=== PATIENT | female | born 1980 | race Caucasian/White ===

== ENCOUNTER 2017-01-18 15:15 | Inpatient (IN) | payer OTHER ==
[2017-01-18 17:07] VITALS: BMI 40.6
--- NOTE | 2017-01-18 18:21 | HP ---
CIWA Score - CIWA Score Nausea/Vomitin Muscle Tremors: 4-Moderate,w/Arms Extend Anxiety: 4-Mod. Anxious/Guarded Agitation: 4-Moderately Restless Paroxysmal Sweats: 1-Minimal Palms Moist Orientation: 0-Oriented Tacttile Disturbances: 0-None Auditory Disturbances: 0-None Visual Disturbances: 0-None Headache: 0-None Present CIWA-Ar Total Score: 15 Admission ROS BHS - HPI Chief Complaint: withdrawal sx Allergies/Adverse Reactions: Allergies Allergy/AdvReac Type Severity Reaction Status Date / Time No Known Allergies Allergy Verified 01/18/17 17:41 History of Present Illness: 36 years old female with long history of alcohol nicotine dependence, has asthma gerd hepatitis c and depression is admitted to detox Exam Limitations: No Limitations - Ebola screening Have you traveled outside of the country in the last 21 days: No Have you had contact with anyone from an Ebola affected area: No Have you been sick,other than usual withdrawal symptoms: No Do you have a fever: No - Review of Systems Constitutional: Changes in sleep, Weight Stable EENT: reports: Blurred Vision (left eye history of trauma), Hearing Loss (right ear) Respiratory: reports: SOB with Exertion Cardiac: reports: No Symptoms Reported GI: reports: Nausea, Poor Fluid Intake, Indigestion, Abdominal cramping : reports: No Symptoms Reported Musculoskeletal: reports: No Symptoms Reported Integumentary: reports: No Symptoms Reported Neuro: reports: Seizure (last episode 05/2016 alcohol withdrawal related), Tremors Endocrine: reports: No Symptoms Reported Hematology: reports: No Symptoms Reported Psychiatric: reports: Judgement Intact, Orientated x3, Anxious, Depressed Other Systems: Reviewed and Negative Patient History - Patient Medical History Hx Anemia: No Hx Asthma: Yes (Pt is on MDI) Hx Chronic Obstructive Pulmonary Disease (COPD): No Hx Cancer: No Hx Cardiac Disorders: No Hx Congestive Heart Failure: No Hx Hypertension: Yes (not on meds.) Hx Hypercholesterolemia: No Hx Pacemaker: No HX Cerebrovascular Accident: No Hx Seizures: Yes (etoh related seizures last 7 months ago.) Hx Dementia: No Hx Diabetes: No Hx Gastrointestinal Disorders: No Hx Genitourinary Disorders: No Hx Sexually Transmitted Disorders: No Hx Renal Disease (ESRD): No Hx Thyroid Disease: No Hx Human Immunodeficiency Virus (HIV): No Hx Hepatitis C: Yes Hx Depression: Yes Hx Suicide Attempt: No Hx Bipolar Disorder: No Hx Schizophrenia: No - Patient Surgical History Past Surgical History: Yes Hx Neurologic Surgery: No Hx Cataract Extraction: Yes (left eye trauma 2003) Hx Cardiac Surgery: No Hx Lung Surgery: No Hx Breast Surgery: No Hx Breast Biopsy: No Hx Abdominal Surgery: No Hx Appendectomy: No Hx Cholecystectomy: No Hx Genitourinary Surgery: No Hx Section: No Hx Orthopedic Surgery: No Hx Hysterectomy: No Other Surgical History: Tubal ligation. L eye artificial lens from trauma. Anesthesia Reaction: No - PPD History Previous Implant?: Yes Documented Results: Negative w/o proof Implanted On Prior R Admission?: No PPD to be Administered?: Yes - Reproductive History Patient is a Female of Child Bearing Age (11 -55 yrs old): Yes Last Menstrual Period: 01/02/17 Patient : No - Smoking Cessation Smoking history: Current every day smoker Have you smoked in the past 12 months: Yes Aproximately how many cigarettes per day: 15 Hx Chewing Tobacco Use: No Initiated information on smoking cessation: Yes 'Breaking Loose' booklet given: 01/18/17 - Substance & Tx. History Hx Alcohol Use: Yes Hx Substance Use: Yes Substance Use Type: Alcohol, Heroin Hx Substance Use Treatment: No - Substances Abused Alcohol Route: Oral Frequency: Daily Amount used: 1/2 gallon volka Age of first use: 28 Date of Last Use: 01/18/17 Family Disease History - Family Disease History Family Disease History: Heart Disease: Mother, Other: Father (/overdose) Admission Physical Exam BHS - Vital Signs Vital Signs: Vital Signs - 24 hr 01/18/17 17:02 Temperature 98.1 F Pulse Rate 85 Respiratory 18 Rate Blood Pressure 144/90 - Physical General Appearance: Yes: Appropriately Dressed, Moderate Distress, Obese, Tremorous, Irritable, Sweating, Anxious HEENTM: Yes: Hearing grossly Normal, Normal ENT Inspection, Normocephalic, Normal Voice Respiratory: Yes: Chest Non-Tender, No Respiratory Distress, No Accessory Muscle Use, Wheezing Neck: Yes: Supple, Trachea in good position Breast: Yes: Breasts Symetrical Cardiology: Yes: Regular Rhythm, Regular Rate, S1, S2 Abdominal: Yes: Normal Bowel Sounds, Non Tender, Soft Genitourinary: Yes: Within Normal Limits Back: Yes: Normal Inspection Musculoskeletal: Yes: full range of Motion, Gait Steady Neurological: Yes: Fully Oriented, Alert, Motor Strength 5/5, Normal Response, Depressed Affect Integumentary: Yes: Warm Lymphatic: Yes: Within Normal Limits - Diagnostic (1) Alcohol dependence with uncomplicated withdrawal Current Visit: Yes Status: Acute (2) Methadone maintenance therapy patient Current Visit: Yes Status: Chronic Comment: 145 mg daily verification pending (3) Asthma Current Visit: Yes Status: Chronic Qualifiers: Asthma severity: mild persistent Asthma complication type: with status asthmaticus Qualified Code(s): J45.32 - Mild persistent asthma with status asthmaticus (4) Nicotine dependence Current Visit: Yes Status: Acute Qualifiers: Nicotine product type: cigarettes Substance use status: in withdrawal Qualified Code(s): F17.213 - Nicotine dependence, cigarettes, with withdrawal (5) GERD (gastroesophageal reflux disease) Current Visit: Yes Status: Chronic Qualifiers: Esophagitis presence: without esophagitis Qualified Code(s): K21.9 - Gastro-esophageal reflux disease without esophagitis (6) Hepatitis C carrier Current Visit: Yes Status: Chronic Cleared for Admission S - Detox or Rehab [facility] Level of Care: Medically Managed Detox Regimen/Protocol: Librium [facility] Breath Alcohol Content Breath Alcohol Content: 0.040 Urine Pregancy Test - Result Urine Test Results: Negative- NO Line Present Urine Drug Screen - Results Drug Screen Negative: No Urine Drug Screen Results: BZO-Benzodiazepines, MTD-Methadone
[2017-01-18] MEDS ORDERED: NICOTINE POLACRILEX 4 MG GUM BUC PRN (18:22)
[2017-01-18] MEDS ORDERED: MAG HYDROX/AL HYDROX/SIMETH 30 ML UNIT-DOSE CUP PO PRN (18:22)
[2017-01-18] MEDS ORDERED: MAGNESIUM HYDROX 2400MG/30ML ORAL SUSPENSION 30 ML CUP PO PRN (18:22)
[2017-01-18] MEDS ORDERED: guaiFENesin/D-METHORPHAN HB 10 ML UNIT-DOSE CUPS PO PRN (18:22)
[2017-01-18] MEDS ORDERED: P-EPHED 60MG/TRIPROLIDI 2.5MG TABLET PO PRN (18:22)
[2017-01-18] MEDS ORDERED: MENTHOL/PHENOL 1 EACH UD MM PRN (18:22)
[2017-01-18] MEDS ORDERED: LOPERAMIDE HCL 2 MG CAPSULE PO PRN (18:22)
[2017-01-18] MEDS ORDERED: ACETAMINOPHEN 325 MG TABLET (FP) PO PRN (18:22)
[2017-01-18] MEDS ORDERED: MAGNESIUM CITRATE 300 ML BOTTLE PO PRN (18:22)
[2017-01-18] MEDS ORDERED: chlordiazePOXIDE HCL 25 MG CAPSULE PO ONE (18:22)
[2017-01-18] MEDS ORDERED: ALBUTEROL SO4 6.7 GM HFA INHALER IH PRN (18:24)
[2017-01-18] MEDS ORDERED: ALBUTEROL SO4 2.5/IPRATROPIUM 0.5 INH SOL 3 ML VIAL.NEB. NEB PRN (18:24)
[2017-01-18] MEDS: chlordiazePOXIDE HCL 25 MG CAPSULE PO SCH (22:19)
[2017-01-18] MEDS: diphenhydrAMINE HCL 50 MG CAPSULE PO PRN (22:20)
[2017-01-18] MEDS: THIAMINE HCL 100 MG TABLET (FP) PO SCH (22:20)
[2017-01-18] MEDS: RANITIDINE HCL 150 MG TABLET (FP) PO SCH (22:42)
[2017-01-19 00:33] LABS: URINE APPEARANCE SLCLOUDY; URINE BILIRUBIN NEGATIVE (NEGATIVE); URINE BLOOD NEGATIVE (NEGATIVE); URINE COLOR YELLOW; URINE GLUCOSE (UA) NEGATIVE (NEGATIVE); URINE KETONE NEGATIVE (NEGATIVE); URINE NITRITE NEGATIVE (NEGATIVE); URINE PROTEIN NEGATIVE (NEGATIVE)
[2017-01-19 00:38] LABS: URINE LEUK ESTERASE 1+ (NEGATIVE)
[2017-01-19 01:00] LABS: URINE RBC 1 /hpf (0-3); URINE WBC 1 /hpf (3-5)
[2017-01-19] MEDS: chlordiazePOXIDE HCL 25 MG CAPSULE PO SCH ×4 (05:27→22:10)
[2017-01-19] MEDS ORDERED: cloNIDine HCL 0.1 MG TABLET PO ONE (06:20)
[2017-01-19] MEDS: chlordiazePOXIDE HCL 25 MG CAPSULE PO PRN ×2 (09:08→12:51)
--- NOTE | 2017-01-19 09:22 | EKG ---
Test Reason : Blood Pressure : / mmHG Vent. Rate : 075 BPM Atrial Rate : 075 BPM P-R Int : 158 ms QRS Dur : 084 ms QT Int : 428 ms P-R-T Axes : 057 036 018 degrees QTc Int : 477 ms NORMAL SINUS RHYTHM POOR R WAVE PROGRESSION NO PREVIOUS ECGS AVAILABLE Confirmed by RAGINI SAM MD ([id number]) on 01/19/2017 9:22:19 AM Referred By: Confirmed By:RAGINI SAM MD
[2017-01-19] MEDS ORDERED: METHADONE HCL 40 MG DISPERSABLE TABLET PO SCH (10:00)
[2017-01-19] MEDS ORDERED: METHADONE 120 MG, METHADONE 20 MG, METHADONE 5 MG PO ONE (10:15)
[2017-01-19] MEDS: RANITIDINE HCL 150 MG TABLET (FP) PO SCH ×2 (10:21→22:10)
[2017-01-19] MEDS: NICOTINE 21 MG/24 HOURS TOPICAL PATCH TD SCH (10:21)
[2017-01-19] MEDS: PRENATAL VITAMINS W/ FOLIC ACID TABLET (FP) PO SCH (10:21)
[2017-01-19 10:24] LABS: MCHC 32.2 g/dl (32.0-36.0); MEAN CELL VOLUME 102.5 fl (80-96); MEAN PLT VOLUME 10.1 fl (7.5-11.1); PLATELET COUNT 120 K/MM3 (134-434); RDW 13.4 % (11.6-15.6); WHITE BLOOD COUNT 7.1 K/mm3 (4.0-10.0)
[2017-01-19] MEDS ORDERED: METHADONE HCL 10 MG TABLET ONE (10:25)
[2017-01-19] MEDS ORDERED: METHADONE HCL 40 MG DISPERSABLE TABLET ONE (10:25)
[2017-01-19] MEDS ORDERED: METHADONE HCL 5 MG TABLET ONE (10:26)
[2017-01-19 10:44] LABS: ALBUMIN 3.1 g/dl (3.4-5.0); ANION GAP 5 (8-16); BILIRUBIN,TOTAL 1.2 mg/dL (0.2-1.0); CALCIUM 8.3 mg/dL (8.5-10.1); CO2 38 mmol/L (21-32); CREATININE 0.8 mg/dL (0.55-1.02); GLUCOSE,RANDOM 119 mg/dL (74-106); SGOT/AST 110 U/L (15-37); TOT PROT 6.5 g/dl (6.4-8.2)
[2017-01-19 10:45] LABS: ALK PHOS 152 U/L (45-117); SGPT/ALT 53 U/L (12-78)
--- NOTE | 2017-01-19 11:29 | PN ---
S CIWA - CIWA Score Nausea/Vomitin Muscle Tremors: 3 Anxiety: 3 Agitation: 2 Paroxysmal Sweats: 1-Minimal Palms Moist Orientation: 0-Oriented Tacttile Disturbances: 1-Very Mild Itch/Numbness Auditory Disturbances: 1-Very Mild Visual Disturbances: 1-Very Mild Sensitivity Headache: 2-Mild CIWA-Ar Total Score: 17 BHS Progress Note (SOAP) Subjective: ALERT,IRRITABLE,ANXIOUS,INTERRUPTED SLEEP,TREMOR Objective: 01/19/17 11:26 Vital Signs Temperature 97.9 F 01/19/17 09:58 Pulse Rate 83 01/19/17 09:58 Respiratory Rate 18 01/19/17 09:58 Blood Pressure 143/82 01/19/17 09:58 O2 Sat by Pulse Oximetry (%) EKG NSR,NORMAL ECG Laboratory Last Values WBC 7.1 K/mm3 (4.0-10.0) 01/19/17 07:00 RBC 4.00 M/mm3 (3.60-5.2) 01/19/17 07:00 Hgb 13.2 GM/dL (10.7-15.3) 01/19/17 07:00 Hct 41.0 % (32.4-45.2) 01/19/17 07:00 MCV 102.5 fl (80-96) H 01/19/17 07:00 MCH 33.0 pg (25.7-33.7) 01/19/17 07:00 MCHC 32.2 g/dl (32.0-36.0) 01/19/17 07:00 RDW 13.4 % (11.6-15.6) 01/19/17 07:00 Plt Count 120 K/MM3 (134-434) L 01/19/17 07:00 MPV 10.1 fl (7.5-11.1) 01/19/17 07:00 Sodium 142 mmol/L (136-145) 01/19/17 07:00 Potassium 3.9 mmol/L (3.5-5.1) 01/19/17 07:00 Chloride 99 mmol/L (98-107) 01/19/17 07:00 Carbon Dioxide 38 mmol/L (21-32) H 01/19/17 07:00 Anion Gap 5 (8-16) L 01/19/17 07:00 BUN 11 mg/dL (7-18) 01/19/17 07:00 Creatinine 0.8 mg/dL (0.55-1.02) 01/19/17 07:00 Creat Clearance w eGFR > 60 (>60) 01/19/17 07:00 Random Glucose 119 mg/dL (74-106) H 01/19/17 07:00 Calcium 8.3 mg/dL (8.5-10.1) L 01/19/17 07:00 Total Bilirubin 1.2 mg/dL (0.2-1.0) H 01/19/17 07:00 AST 110 U/L (15-37) H 01/19/17 07:00 ALT 53 U/L (12-78) 01/19/17 07:00 Alkaline Phosphatase 152 U/L (45-117) H 01/19/17 07:00 Total Protein 6.5 g/dl (6.4-8.2) 01/19/17 07:00 Albumin 3.1 g/dl (3.4-5.0) L 01/19/17 07:00 Urine Color Yellow 01/19/17 00:01 Urine Appearance Slcloudy 01/19/17 00:01 Urine pH 6.0 (5.0-8.0) 01/19/17 00:01 Ur Specific [place] 1.010 (1.005-1.025) 01/19/17 00:01 Urine Protein Negative (NEGATIVE) 01/19/17 00:01 Urine Glucose (UA) Negative (NEGATIVE) 01/19/17 00:01 Urine Ketones Negative (NEGATIVE) 01/19/17 00:01 Urine Blood Negative (NEGATIVE) 01/19/17 00:01 Urine Nitrite Negative (NEGATIVE) 01/19/17 00:01 Urine Bilirubin Negative (NEGATIVE) 01/19/17 00:01 Urine Urobilinogen 2.0 mg/dL (0.2-1.0) H 01/19/17 00:01 Ur Leukocyte Esterase 1+ (NEGATIVE) H 01/19/17 00:01 Urine RBC 1 /hpf (0-3) 01/19/17 00:01 Urine WBC 1 /hpf (3-5) 01/19/17 00:01 Ur Epithelial Cells Rare /hpf (FEW) 01/19/17 00:01 Assessment: 01/19/17 11:28 WITHDRAWAL SYMPTOM Plan: CONTINUE DETOX,D/C TYLENOL.CMP,INR IN AM
--- NOTE | 2017-01-19 13:52 | CONSULT ---
[facility] Psychiatric Consult - Data Date of interview: 01/19/17 Admission source: [facility] Identifying data: First admisssion to [facility] for this 36 y/o female from [place] ancestry,seeking detox treatment on for alcohol and heroin dependence.Patient is ,a mother of three,homeless (fci), unemployed and supported on welfare. Substance Abuse History: Discuseed in this session.Patient confirmed the following [facility] report. Smoking Cessation. Smoking history: Current every day smoker. Have you smoked in the past 12 months: Yes. Aproximately how many cigarettes per day: 15. Hx Chewing Tobacco Use: No. Initiated information on smoking cessation: Yes. 'Breaking Loose' booklet given: 01/18/17. - Substance & Tx. History. Hx Alcohol Use: Yes. Hx Substance Use: Yes. Substance Use Type : Alcohol, Heroin. Hx Substance Use Treatment: No. - Substances Abused. Alcohol. Route: Oral. Frequency: Daily. Amount used: 1/2 gallon volka. Age of first use: 28. Date of Last Use: 01/18/17 Medical History: Hypercholesterolemia,hypertension,GERD,hepatitis C,withdrawal- related seizures in the past and a history of tubal ligation.Noted additional history of eye surgery in 2003 due to traumatic injury (artificial lens in left eye). Psychiatric History: No reported history of psychiatric hospitalizations.Patient admits to being diagnosed with Bipolar Disorder and followed at the [facility] mental health clinic in [facility].Prescribed trazodone + geodon.Ms Moe declares total non-adherence to geodon (for more than one year) and partial/sporadic compliance with trazodone.Patient denies history of suicide attempts. Physical/Sexual Abuse/Trauma History: Patient denies. Additional Comment: Urine Drug Screen Results: BZO-Benzodiazepines, MTD- Methadone.Noted. Mental Status Exam - Mental Status Exam Alert and Oriented to: Time, Place, Person Cognitive Function: Good Patient Appearance: Well Groomed (overweight) Mood: Hopeful, Euthymic Affect: Appropriate, Normal Range Patient Behavior: Appropriate, Cooperative Speech Pattern: Clear Voice Loudness: Normal Thought Process: Intact, Goal Oriented Thought Disorder: Not Present Hallucinations: Denies Suicidal Ideation: Denies Homicidal Ideation: Denies Insight/Judgement: Poor Sleep: Poorly, Difficulty falling asleep Appetite: Good Muscle strength/Tone: Normal Gait/Station: Normal Psychiatric Findings - Problem List ([place] 1, 2,3) (1) Alcohol dependence with uncomplicated withdrawal Current Visit: Yes Status: Acute (2) Opioid dependence on agonist therapy Current Visit: Yes Status: Acute (3) Nicotine dependence Current Visit: Yes Status: Acute Qualifiers: Nicotine product type: cigarettes Substance use status: in withdrawal Qualified Code(s): F17.213 - Nicotine dependence, cigarettes, with withdrawal (4) Substance induced mood disorder Current Visit: Yes Status: Acute (5) Asthma Current Visit: Yes Status: Chronic Qualifiers: Asthma severity: mild persistent Asthma complication type: with status asthmaticus Qualified Code(s): J45.32 - Mild persistent asthma with status asthmaticus (6) GERD (gastroesophageal reflux disease) Current Visit: Yes Status: Chronic Qualifiers: Esophagitis presence: without esophagitis Qualified Code(s): K21.9 - Gastro-esophageal reflux disease without esophagitis (7) Hepatitis C carrier Current Visit: Yes Status: Chronic (8) Insomnia Current Visit: Yes Status: Acute - Initial Treatment Plan Initial Treatment Plan: Psychoeducation.Detoxification.Trazodone 50 mg po hs ( patient's request).Side effects/benefits discussed with patient.She consents ( verbally) to adhere to careplan.Observation.Declines geodon or alternates.
[2017-01-19] MEDS: diphenhydrAMINE HCL 50 MG CAPSULE PO PRN (22:11)
[2017-01-19] MEDS: traZODone HCL 50 MG TABLET (FP) PO SCH (22:11)
[2017-01-19] MEDS: THIAMINE HCL 100 MG TABLET (FP) PO SCH (22:11)
[2017-01-20] MEDS ORDERED: METHADONE HCL 10 MG TABLET ONE (05:03)
[2017-01-20] MEDS ORDERED: METHADONE HCL 40 MG DISPERSABLE TABLET ONE (05:03)
[2017-01-20] MEDS ORDERED: METHADONE HCL 5 MG TABLET ONE (05:04)
[2017-01-20] MEDS: chlordiazePOXIDE HCL 25 MG CAPSULE PO SCH ×3 (05:23→17:32)
[2017-01-20] MEDS: METHADONE 120 MG, METHADONE 20 MG, METHADONE 5 MG PO SCH (05:23)
[2017-01-20] MEDS: NICOTINE 21 MG/24 HOURS TOPICAL PATCH TD SCH (10:20)
[2017-01-20] MEDS: PRENATAL VITAMINS W/ FOLIC ACID TABLET (FP) PO SCH (10:20)
[2017-01-20] MEDS: RANITIDINE HCL 150 MG TABLET (FP) PO SCH ×2 (10:20→22:06)
--- NOTE | 2017-01-20 10:37 | PN ---
S CIWA - CIWA Score Nausea/Vomitin-Int. Nausea w/Dry Heave Muscle Tremors: 4-Moderate,w/Arms Extend Anxiety: 4-Mod. Anxious/Guarded Agitation: 4-Moderately Restless Paroxysmal Sweats: 3 Orientation: 0-Oriented Tacttile Disturbances: 0-None Auditory Disturbances: 0-None Visual Disturbances: 0-None Headache: 0-None Present CIWA-Ar Total Score: 19 S Progress Note (SOAP) Subjective: nausea, sweats, interrupted sleep, anxiety, tremors, rash pruruitc on back Objective: 01/20/17 10:36 Vital Signs - 24 hr 01/19/17 01/19/17 01/19/17 13:50 17:57 21:14 Temperature 97.7 F 97.7 F 97.9 F Pulse Rate 120 H 66 79 Respiratory 18 16 18 Rate Blood Pressure 154/85 140/90 150/104 01/19/17 01/20/17 01/20/17 23:45 00:30 03:30 Temperature Pulse Rate 66 Respiratory 18 18 Rate Blood Pressure 126/88 01/20/17 01/20/17 06:00 09:58 Temperature 97.5 F L 97.0 F L Pulse Rate 67 73 Respiratory 20 18 Rate Blood Pressure 146/87 124/89 Laboratory Tests 01/19/17 01/19/17 01/19/17 00:01 07:00 07:00 WBC 7.1 RBC 4.00 Hgb 13.2 Hct 41.0 MCV 102.5 H MCH 33.0 MCHC 32.2 RDW 13.4 Plt Count 120 L MPV 10.1 Sodium 142 Potassium 3.9 Chloride 99 Carbon Dioxide 38 H Anion Gap 5 L BUN 11 Creatinine 0.8 Creat Clearance w eGFR > 60 Random Glucose 119 H Calcium 8.3 L Total Bilirubin 1.2 H AST 110 H ALT 53 Alkaline Phosphatase 152 H Total Protein 6.5 Albumin 3.1 L Urine Color Yellow Urine Appearance Slcloudy Urine pH 6.0 Ur Specific [place] 1.010 Urine Protein Negative Urine Glucose (UA) Negative Urine Ketones Negative Urine Blood Negative Urine Nitrite Negative Urine Bilirubin Negative Urine Urobilinogen 2.0 H Ur Leukocyte Esterase 1+ H Urine RBC 1 Urine WBC 1 Ur Epithelial Cells Rare RPR Titer 01/19/17 07:00 WBC RBC Hgb Hct MCV MCH MCHC RDW Plt Count MPV Sodium Potassium Chloride Carbon Dioxide Anion Gap BUN Creatinine Creat Clearance w eGFR Random Glucose Calcium Total Bilirubin AST ALT Alkaline Phosphatase Total Protein Albumin Urine Color Urine Appearance Urine pH Ur Specific [place] Urine Protein Urine Glucose (UA) Urine Ketones Urine Blood Urine Nitrite Urine Bilirubin Urine Urobilinogen Ur Leukocyte Esterase Urine RBC Urine WBC Ur Epithelial Cells RPR Titer Nonreactive Assessment: 01/20/17 10:36 withdrawal sx, pruritic rash Plan: cont detox, fluids, ambulate, lachydrin for dry skin
[2017-01-20 10:47] LABS: ALBUMIN 3.1 g/dl (3.4-5.0); ANION GAP 7 (8-16); BILIRUBIN,TOTAL 0.9 mg/dL (0.2-1.0); CALCIUM 8.4 mg/dL (8.5-10.1); CO2 37 mmol/L (21-32); GLUCOSE,RANDOM 129 mg/dL (74-106); SGOT/AST 105 U/L (15-37); SGPT/ALT 57 U/L (12-78)
[2017-01-20 10:49] LABS: ALK PHOS 160 U/L (45-117); CREATININE 0.8 mg/dL (0.55-1.02); TOT PROT 6.5 g/dl (6.4-8.2)
[2017-01-20] MEDS ORDERED: AMMONIUM LACTATE 12% LOTION 225 GM BOTTLE TP PRN (11:00)
[2017-01-20 11:02] LABS: INR 1.1 (0.82-1.09); PROTHROMBIN TIME (PATIENT) 12.1 SEC (9.98-11.88)
[2017-01-20] MEDS: chlordiazePOXIDE HCL 25 MG CAPSULE PO PRN (19:31)
[2017-01-20] MEDS: traZODone HCL 50 MG TABLET (FP) PO SCH (22:06)
[2017-01-20] MEDS: THIAMINE HCL 100 MG TABLET (FP) PO SCH (22:06)
[2017-01-20] MEDS: chlordiazePOXIDE 5 MG CAPSULE PO SCH (22:06)
[2017-01-20] MEDS: diphenhydrAMINE HCL 50 MG CAPSULE PO PRN (22:06)
[2017-01-21] MEDS ORDERED: METHADONE HCL 10 MG TABLET ONE (02:13)
[2017-01-21] MEDS ORDERED: METHADONE HCL 40 MG DISPERSABLE TABLET ONE (02:13)
[2017-01-21] MEDS ORDERED: METHADONE HCL 5 MG TABLET ONE (02:13)
[2017-01-21] MEDS: chlordiazePOXIDE 5 MG CAPSULE PO SCH ×3 (05:44→18:08)
[2017-01-21] MEDS: METHADONE 120 MG, METHADONE 20 MG, METHADONE 5 MG PO SCH (05:45)
--- NOTE | 2017-01-21 10:13 | PN ---
BHS Progress Note (SOAP) Subjective: nausea, sweats, interrupted sleep, anxiety, tremors Objective: 01/21/17 10:12 Vital Signs - 8 hr 01/21/17 01/21/17 03:30 06:16 Temperature 97.2 F L Pulse Rate 75 Respiratory 18 18 Rate Blood Pressure 148/67 Laboratory Tests 01/19/17 01/19/17 01/19/17 00:01 07:00 07:00 WBC 7.1 RBC 4.00 Hgb 13.2 Hct 41.0 MCV 102.5 H MCH 33.0 MCHC 32.2 RDW 13.4 Plt Count 120 L MPV 10.1 INR Sodium 142 Potassium 3.9 Chloride 99 Carbon Dioxide 38 H Anion Gap 5 L BUN 11 Creatinine 0.8 Creat Clearance w eGFR > 60 Random Glucose 119 H Calcium 8.3 L Total Bilirubin 1.2 H AST 110 H ALT 53 Alkaline Phosphatase 152 H Total Protein 6.5 Albumin 3.1 L Urine Color Yellow Urine Appearance Slcloudy Urine pH 6.0 Ur Specific [place] 1.010 Urine Protein Negative Urine Glucose (UA) Negative Urine Ketones Negative Urine Blood Negative Urine Nitrite Negative Urine Bilirubin Negative Urine Urobilinogen 2.0 H Ur Leukocyte Esterase 1+ H Urine RBC 1 Urine WBC 1 Ur Epithelial Cells Rare RPR Titer 01/19/17 01/20/17 01/20/17 07:00 07:00 07:00 WBC RBC Hgb Hct MCV MCH MCHC RDW Plt Count MPV INR 1.10 Sodium 144 Potassium 4.0 Chloride 100 Carbon Dioxide 37 H Anion Gap 7 L BUN 12 Creatinine 0.8 Creat Clearance w eGFR > 60 Random Glucose 129 H Calcium 8.4 L Total Bilirubin 0.9 D AST 105 H ALT 57 Alkaline Phosphatase 160 H Total Protein 6.5 Albumin 3.1 L Urine Color Urine Appearance Urine pH Ur Specific [place] Urine Protein Urine Glucose (UA) Urine Ketones Urine Blood Urine Nitrite Urine Bilirubin Urine Urobilinogen Ur Leukocyte Esterase Urine RBC Urine WBC Ur Epithelial Cells RPR Titer Nonreactive Assessment: 01/21/17 10:12 withdrawal sx Plan: cont detox
[2017-01-21] MEDS: PRENATAL VITAMINS W/ FOLIC ACID TABLET (FP) PO SCH (10:23)
[2017-01-21] MEDS: RANITIDINE HCL 150 MG TABLET (FP) PO SCH ×2 (10:23→22:09)
[2017-01-21] MEDS: NICOTINE 21 MG/24 HOURS TOPICAL PATCH TD SCH (10:24)
[2017-01-21] MEDS: chlordiazePOXIDE HCL 25 MG CAPSULE PO PRN (13:01)
[2017-01-21] MEDS: THIAMINE HCL 100 MG TABLET (FP) PO SCH (22:09)
[2017-01-21] MEDS: diphenhydrAMINE HCL 50 MG CAPSULE PO PRN (22:09)
[2017-01-21] MEDS: traZODone HCL 50 MG TABLET (FP) PO SCH (22:09)
[2017-01-21] MEDS: chlordiazePOXIDE HCL 10 MG CAPSULE PO SCH (22:09)
[2017-01-22] MEDS ORDERED: METHADONE HCL 40 MG DISPERSABLE TABLET ONE (04:04)
[2017-01-22] MEDS ORDERED: METHADONE HCL 5 MG TABLET ONE (04:05)
[2017-01-22] MEDS ORDERED: METHADONE HCL 10 MG TABLET ONE (04:05)
[2017-01-22] MEDS: METHADONE 120 MG, METHADONE 20 MG, METHADONE 5 MG PO SCH (05:14)
[2017-01-22] MEDS: chlordiazePOXIDE HCL 10 MG CAPSULE PO SCH (05:14)
[2017-01-22 06:33] VITALS: TEMP 97.9
--- NOTE | 2017-01-22 09:20 | DS ---
[facility] Detox Discharge Summary Admission Date: 01/18/17 Discharge Date: 01/22/17 - History Present History: Alcohol Dependence, MMTP Pertinent Past History: nicotine dependence, insomnia, anxiety, depression, hep c+ - Physical Exam Results Vital Signs: Vital Signs Temperature 97.9 F 01/22/17 06:33 Pulse Rate 72 01/22/17 06:33 Respiratory Rate 18 01/22/17 06:33 Blood Pressure 150/79 01/22/17 06:33 O2 Sat by Pulse Oximetry (%) Laboratory Tests 01/19/17 01/19/17 01/19/17 00:01 07:00 07:00 WBC 7.1 RBC 4.00 Hgb 13.2 Hct 41.0 MCV 102.5 H MCH 33.0 MCHC 32.2 RDW 13.4 Plt Count 120 L MPV 10.1 INR Sodium 142 Potassium 3.9 Chloride 99 Carbon Dioxide 38 H Anion Gap 5 L BUN 11 Creatinine 0.8 Creat Clearance w eGFR > 60 Random Glucose 119 H Calcium 8.3 L Total Bilirubin 1.2 H AST 110 H ALT 53 Alkaline Phosphatase 152 H Total Protein 6.5 Albumin 3.1 L Urine Color Yellow Urine Appearance Slcloudy Urine pH 6.0 Ur Specific [place] 1.010 Urine Protein Negative Urine Glucose (UA) Negative Urine Ketones Negative Urine Blood Negative Urine Nitrite Negative Urine Bilirubin Negative Urine Urobilinogen 2.0 H Ur Leukocyte Esterase 1+ H Urine RBC 1 Urine WBC 1 Ur Epithelial Cells Rare RPR Titer 01/19/17 01/20/17 01/20/17 07:00 07:00 07:00 WBC RBC Hgb Hct MCV MCH MCHC RDW Plt Count MPV INR 1.10 Sodium 144 Potassium 4.0 Chloride 100 Carbon Dioxide 37 H Anion Gap 7 L BUN 12 Creatinine 0.8 Creat Clearance w eGFR > 60 Random Glucose 129 H Calcium 8.4 L Total Bilirubin 0.9 D AST 105 H ALT 57 Alkaline Phosphatase 160 H Total Protein 6.5 Albumin 3.1 L Urine Color Urine Appearance Urine pH Ur Specific [place] Urine Protein Urine Glucose (UA) Urine Ketones Urine Blood Urine Nitrite Urine Bilirubin Urine Urobilinogen Ur Leukocyte Esterase Urine RBC Urine WBC Ur Epithelial Cells RPR Titer Nonreactive Pertinent Admission Physical Exam Findings: withdrawal sx - Treatment Hospital Course: Detox Protocol Followed, Detoxed Safely, Responded well, Discharged Condition Good, Rehab Referral Accepted Patient has Accepted a Rehab Referral to: Yes MMTP - Medication Discharge Medications: Ambulatory Orders Albuterol Sulfate Inhaler - [Ventolin HFA Inhaler -] 2 inh PO Q4H PRN #1 inh 09/04 Omeprazole 40 mg PO DAILY #30 cap MDD 1 01/22/17 - Diagnosis (1) Alcohol dependence with uncomplicated withdrawal Current Visit: Yes Status: Chronic (2) Insomnia Current Visit: Yes Status: Acute (3) Nicotine dependence Current Visit: Yes Status: Chronic Qualifiers: Nicotine product type: cigarettes Substance use status: in withdrawal Qualified Code(s): F17.213 - Nicotine dependence, cigarettes, with withdrawal (4) Opioid dependence on agonist therapy Current Visit: Yes Status: Chronic (5) Substance induced mood disorder Current Visit: Yes Status: Acute (6) Asthma Current Visit: Yes Status: Chronic Qualifiers: Asthma severity: mild persistent Asthma complication type: with status asthmaticus Qualified Code(s): J45.32 - Mild persistent asthma with status asthmaticus (7) GERD (gastroesophageal reflux disease) Current Visit: Yes Status: Chronic Qualifiers: Esophagitis presence: without esophagitis Qualified Code(s): K21.9 - Gastro-esophageal reflux disease without esophagitis (8) Hepatitis C carrier Current Visit: Yes Status: Chronic - AMA Did Patient Leave Against Medical Advice: No
[2017-01-22] MEDS: PRENATAL VITAMINS W/ FOLIC ACID TABLET (FP) PO SCH (09:22)
[2017-01-22] MEDS: RANITIDINE HCL 150 MG TABLET (FP) PO SCH (09:22)
[2017-01-22 09:30] VITALS: BP 147/98; PULSE 89
== END 2017-01-22 09:50 | disposition home or self-care (01) | DRG 773 ==
LOC: YASAS 15:15 → Y6N 18:55
PROVIDERS: ADMIT Internal Medicine Addiction Medicine; ATTEND Internal Medicine Addiction Medicine
PROC: HZ2ZZZZ Detoxification Services for Substance Abuse Treatment (ICD-10-PCS; principal; 2017-01-18)
DX: F10.230 Alcohol dependence with withdrawal, uncomplicated (principal); F11.20 Opioid dependence, uncomplicated; F17.213 Nicotine dependence, cigarettes, with withdrawal; F19.24 Other psychoactive substance dependence with psychoactive substance-induced mood disorder; G47.00 Insomnia, unspecified; J45.32 Mild persistent asthma with status asthmaticus; K21.9 Gastro-esophageal reflux disease without esophagitis; B18.2 Chronic viral hepatitis C; R21 Rash and other nonspecific skin eruption; L29.9 Pruritus, unspecified; E66.9 Obesity, unspecified; Z68.41 Body mass index [BMI] 40.0-44.9, adult; Z86.69 Personal history of other diseases of the nervous system and sense organs
CPT/HCPCS: 36415; 80053; 81003; 81015; 85027; 85610; 86593; 93005; 93010